=== PATIENT | female | born 1990 | race Hispanic/Latino ===

== ENCOUNTER 2018-10-27 01:02 | Emergency (ER) | payer SELFPAY ==
[2018-10-27] MEDS ORDERED: Bacitracin 1 PK ONE (02:35)
[2018-10-27] MEDS ORDERED: Adacel (T-DAP) 0.5 ML SYRINGE ONE (02:35)
--- NOTE | 2018-10-27 08:53 | RAD ---
4 VIEWS RIGHT KNEE: Date: 10/27/18 COMPARISON: None. HISTORY: Fall with knee pain. FINDINGS: 4 views of the right knee show no evidence of acute fracture or dislocation. No knee effusion is seen . No degenerative changes are present. IMPRESSION: Unremarkable exam. POS: CET
== END 2018-10-27 02:55 | disposition home or self-care (01) ==
LOC: ERS 01:02
DX: S80.211A Abrasion, right knee, initial encounter (principal); W01.0XXA Fall on same level from slipping, tripping and stumbling without subsequent striking against object, initial encounter
CPT/HCPCS: 90715